=== PATIENT | female | born 1995 | race Caucasian/White ===

== ENCOUNTER → 2021-01-27 09:32 | Outpatient (CLI) | payer OTHER, SELFPAY ==
--- NOTE | 2021-01-27 | DI.RAD.S_ITS ---
PROCEDURE: XR LUMBAR SPINE 2-3V INDICATIONS: Pain in leg, unspecified TECHNIQUE: 3 views of the lumbar spine were acquired. COMPARISON: None. FINDINGS: Bones: 5 [id number] vertebrae are present. There is normal bony alignment. No vertebral body compression fractures. No suspicious bony lesions. Soft tissues: Overlying bowel gas pattern is normal. No suspicious soft tissue calcifications. IMPRESSION: Unremarkable lumbar spine radiographs Dictated by: Henok Strong M.D. on 01/27/2021 at 12:34 Approved by: Henok Strong M.D. on 01/27/2021 at 12:35
--- NOTE | 2021-01-27 | DI.RAD.S_ITS ---
PROCEDURE: XR HAND RT MIN 3V INDICATIONS: RIGHT 5TH DIGIT TRIGGER FINGER TECHNIQUE: 3 views of the hand(s) acquired. COMPARISON: None. FINDINGS: Bones: No fractures or dislocations. Carpal bones are normally aligned. No suspicious bony lesions. Soft tissues: No suspicious soft tissue calcifications. IMPRESSION: Unremarkable right hand radiographs Dictated by: Henok Strong M.D. on 01/27/2021 at 12:30 Approved by: Henok Strong M.D. on 01/27/2021 at 12:33
== END ==
PROVIDERS: PCP Family Medicine; Referring Provider Family Medicine; Visit Provider Family Medicine
DX: M79.644 Pain in right finger(s) (principal); M79.606 Pain in leg, unspecified; M65.351 Trigger finger, right little finger
CPT/HCPCS: 72100; 73130